=== PATIENT | female | born 1945 | race Caucasian/White ===

== ENCOUNTER 2024-03-05 15:04 | Observation (INO) | payer MEDICARE, BC ==
[~2024-03-05] VITALS: Ht 162.6 cm; Wt 81.1 kg
[2024-03-05 15:47] LABS: BASO % 0.3 % (0.0-2.0); EOS # 0.1 K/mm3 (0.0-0.7); GRAN # 5.4 K/mm3 (1.4-6.5); GRAN % 63.2 % (42.2-75.2); HEMOGLOBIN 10.3 g/dl (12.5-16.0); LYMPH # 1.9 K/mm3 (1.2-3.4); LYMPH % 22.1 % (20.0-51.0); MEAN CELL VOLUME 100 fl (80.0-100.0); MEAN CORPUSCULAR HEMOGLOBIN 33 pg (27-31); MEAN CORPUSCULAR HGB CONC 33 g/dl (33.0-37.0); MEAN PLATELET VOLUME 10.3 fl (7.4-10.4); MONO # 1.1 K/mm3 (0.1-0.6); MONO % 12.9 % (1.7-9.3); PLATELET COUNT 177 K/mm3 (130-400); RED BLOOD COUNT 3.15 M/mm3 (4.10-5.30); REDCELL DISTRIBUTION WIDTH-CV 13.2 % (11.5-14.5)
[2024-03-05 15:48] LABS: HEMATOCRIT 31.5 % (37.0-47.0)
[2024-03-05 15:58] LABS: INR 2.3 (0.8-3.0); PROTHROMBIN TIME 24.7 SECONDS (9.7-12.8)
[2024-03-05 16:01] LABS: ALANINE AMINOTRANSFERASE 11 U/L (0-55); ALBUMIN 2.6 g/dL (3.4-4.8); ALKALINE PHOSPHATASE 52 U/L (40-150); ANION GAP 13 mmol/L (7-16); AST,SGOT 17 U/L (5-34); BILIRUBIN,TOTAL 0.7 mg/dL (0.2-1.2); BLOOD UREA NITROGEN 12 mg/dL (10-20); CALCIUM 9.1 mg/dL (8.4-10.2); CHLORIDE 104 mEq/L (98-107); CREATININE, serum 1.18 mg/dL (0.57-1.11); GLUCOSE 92 mg/dL (70-99); MAGNESIUM 1.4 mg/dL (1.6-2.6); POTASSIUM 3.3 mEq/L (3.5-4.5); SODIUM 140 mEq/L (136-145); TOTAL PROTEIN 5.4 g/dl (6.2-8.1)
[2024-03-05 16:16] LABS: TROPONIN-I < 0.010 ng/mL (0.00-0.033)
[2024-03-05] MEDS ORDERED: Polyethylene Glycol 3350 17 GM PDS PO PRN (19:00)
[2024-03-05] MEDS ORDERED: Docusate Sodium 100 MG CAP PO PRN (19:00)
[2024-03-05] MEDS ORDERED: Ondansetron 4 MG/2 ML VIAL IV PRN (19:00)
[2024-03-05] MEDS ORDERED: Acetaminophen 325 MG TAB PO PRN (19:00)
[2024-03-05] MEDS ORDERED: DOXYCYCLINE HY100 MG PO (19:16)
[2024-03-05] MEDS ORDERED: LIPITOR20 MG PO (19:17)
[2024-03-05] MEDS ORDERED: LASIX 20MG TABL20 MG PO (19:17)
[2024-03-05] MEDS ORDERED: PAXIL40 MG PO (19:18)
[2024-03-05] MEDS ORDERED: PACERONE200 MG PO (19:18)
[2024-03-05] MEDS ORDERED: XARELTO15 MG PO (19:18)
[2024-03-05] MEDS ORDERED: ASPIRIN 81M81 MG/TA2 PO (19:19)
[2024-03-05] MEDS ORDERED: FOLIC ACID 11 MG/TA1 PO (19:19)
[2024-03-05] MEDS ORDERED: MULTIPLE VITAMI1 CAP PO (19:20)
[2024-03-05] MEDS ORDERED: NATURE'S BLEND100 M2 PO (19:20)
[2024-03-05 20:08] LABS: COLLECTION METHOD CATHETER
[2024-03-05] MEDS ORDERED: Potassium Bicarbonate/Citrate 20 MEQ Effervescent TAB PO ONE (20:15)
[2024-03-05] MEDS ORDERED: Magnesium Sulfate 8% 50 ML IV ONE (20:15)
--- NOTE | 2024-03-05 20:15 | NUR ---
REPORT RECIEVED FROM RENETTA HALEY IN ER.
[2024-03-05 20:17] LABS: PH 5.5 (5.0-8.5); URINE APPEARANCE CLEAR (CLEAR/HAZY); URINE BLOOD NEGATIVE (NEGATIVE); URINE COLOR YELLOW (YELLOW); URINE GLUCOSE NEGATIVE (NEGATIVE); URINE KETONE TRACE (NEGATIVE); URINE NITRATE NEGATIVE (NEGATIVE); URINE PROTEIN(semi-quant) TRACE (NEGATIVE); URINE UROBILINOGEN 0.2 E.U/dL (0.2-1.0)
[2024-03-05 20:35] VITALS: BP 106/63; PULSE 79; TEMP 98.2
--- NOTE | 2024-03-05 20:35 | NUR ---
FEMALE PATIENT ARRIVED TO ROOM #215 VIA STRETCHER FROM ER. PATIENT ASSISTED TO BED VIA SLIDE BOARD. PATIENT TOELRATED WELL. AT BEDSIDE. EXTRA SHEET REMOVED AND SKIN ASSESSMENT COMPLETED. PATIENT PULLED UP IN BED AND HELPED TO REPOSITION FOR COMFORT. INT TO LEFT FOREARM INTACT WITH NO COMPLICATIONS NOTED. TELEMETRY INTACT. INITAL INTAKE AND INITAL ASSESSMENT COMPLETED. PATENT TOLERATED WELL. PATIENT CHEANGED INTO YELLOW GOWN AND FALL RISK ARMBAND PLACED ON WRIST. REQUESTED ICE FOR PATIENT AND PITCHER OF ICE WITH WATER GIVEN. AND PATIENT VERBALIZED UNDERSTANDING OF CALL LIGHT AND BED CONTROLS. PATIENT DENIES ANY OTHER NEEDS AT THIS TIME. BED IN LOW POSITION WITH WHEELS LOCKED WITH RAILS UP X3 AND CALL LIGHT WITHIN REACH. BED ALARM ON.
[2024-03-05 21:00] VITALS: BP_SYST 106
[2024-03-05] MEDS ORDERED: Doxycycline Monohydrate 100 MG CAP PO SCH (21:00)
[2024-03-05] MEDS ORDERED: Atorvastatin 20 MG TAB PO SCH (21:00)
[2024-03-05] MEDS ORDERED: Famotidine 20 MG TAB PO SCH (21:00)
[2024-03-06] VITALS (14 sets, daily range): BP systolic 99–125; BP diastolic 51–71; PULSE 81–96; TEMP 97.9–980
[2024-03-06 06:34] LABS: BASO % 0.6 % (0.0-2.0); EOS # 0.1 K/mm3 (0.0-0.7); EOS % 1.5 % (0.0-4.0); GRAN # 3.4 K/mm3 (1.4-6.5); GRAN % 65.8 % (42.2-75.2); LYMPH # 1.1 K/mm3 (1.2-3.4); LYMPH % 20.3 % (20.0-51.0); MEAN CELL VOLUME 101 fl (80.0-100.0); MEAN CORPUSCULAR HGB CONC 31 g/dl (33.0-37.0); MEAN PLATELET VOLUME 11.8 fl (7.4-10.4); MONO # 0.6 K/mm3 (0.1-0.6); MONO % 11.2 % (1.7-9.3); RED BLOOD COUNT 2.83 M/mm3 (4.10-5.30); REDCELL DISTRIBUTION WIDTH-CV 12.9 % (11.5-14.5)
[2024-03-06 06:38] LABS: HEMATOCRIT 28.6 % (37.0-47.0); HEMOGLOBIN 8.9 g/dl (12.5-16.0); MEAN CORPUSCULAR HEMOGLOBIN 31 pg (27-31); PLATELET COUNT 52 K/mm3 (130-400)
[2024-03-06 06:54] LABS: CALCIUM 8.8 mg/dL (8.4-10.2); CREATININE, serum 1.03 mg/dL (0.57-1.11); POTASSIUM 3.6 mEq/L (3.5-4.5)
[2024-03-06] MEDS ORDERED: Rivaroxaban 15 MG TAB PO SCH (08:00)
[2024-03-06] MEDS ORDERED: Amiodarone 200 MG TAB PO SCH (09:00)
[2024-03-06] MEDS ORDERED: PARoxetine HCL 10 MG TABLET PO SCH (09:00)
[2024-03-06] MEDS ORDERED: Thiamine 100 MG TAB PO SCH (09:00)
[2024-03-06] MEDS ORDERED: Multivitamin TAB PO SCH (09:00)
[2024-03-06] MEDS ORDERED: Folic Acid 1 MG TAB PO SCH (09:00)
[2024-03-06] MEDS ORDERED: LR 1,000 ML IV SCH (09:00)
--- NOTE | 2024-03-06 10:15 | NUR ---
food service utility worker met with pt's due to pt working with PT/OT in room. Lucio [phone] reports he has short-term memory loss and his daughter, Leona is DPOA-HC. did not have a copy. He reports pt has been at [facility] for 2-[address] Montano and obtains medications froM [facility] with no issues. He states pt is usually independent with ADLS and uses a rolator for DME. intends for pt to return to [facility]. SOLOMON Hernandez spoke with [facility] to obtain DPOA-HC. This SOLOMON emailed updates to Sonido at [facility]. Discharge Plan: return to [facility]
[2024-03-06] MEDS ORDERED: COLACE 100100 MG/CAP PO (10:29)
[2024-03-06] MEDS ORDERED: CRESTOR20 MG PO (10:33)
[2024-03-06] MEDS ORDERED: MIRALAX PA17 GM/Dose PO (10:34)
[2024-03-06] MEDS ORDERED: MELATONIN5 M1 SL (10:36)
[2024-03-06] MEDS ORDERED: PRILOTC PO (10:36)
[2024-03-06] MEDS ORDERED: TYLENOL 500MG500 MG PO (10:40)
[2024-03-06] MEDS ORDERED: ULTRAM 50MG TAB50 MG PO (10:40)
[2024-03-06] MEDS ORDERED: NITROSTAT0.4 MG/TAB SL (10:41)
[2024-03-06] MEDS ORDERED: XANAX 0.5MG0.5 MG PO (10:41)
--- NOTE | 2024-03-06 13:38 | NUR ---
Hand Woven Carpet And Rug Mender contacted patient's DPOA-HC, Leona (ph#[phone]) to check in. Leona requested clinical update and RN will call later this afternoon. SOLOMON received DPOA-HC from [place] and placed it on patient's chart.
--- NOTE | 2024-03-06 14:41 | NUR ---
Patient appears alert and follows verbal commands. Patient was not answering orientation questions for this nurse, but per speech therapy who was in room at same time, patient answered questions appropriately for her. Patient tolerating food and fluids PO well, but requires supervision. Requires cues and encouragement during eating and taking medications. Observed patient holding pills for extended time until encouraged to finish taking medicine. Tolerated pills whole one at a time with water. at bedside. LR infusing per orders. Patient does speak, but appears to do so selectively, patient will look and make eye contact but only answers when prompted multiple times. Patient's voices no concerns other than speaking to hospitalist regarging discharge planning. Hospitalist notified. Call light within reach, all needs met at this time.
--- NOTE | 2024-03-06 17:26 | NUR ---
Patient tolerating activity well x1 assist with walker/gait belt. Small incontinence episode noted, patient assisted to bathroom. Linens changed. Barrier cream applied to mild redness on bottom. Patient resting in bed with call light in reach, all needs met at this time.
--- NOTE | 2024-03-06 20:15 | NUR ---
PATIENT RESTING IN BED WITH TV OFF WITH NO FAMILY PRESENT WITH NO ACUTE DISTRESS NOTED. PATIENT ON ROOM AIR. NS INFUSING INTO LEFT FOREARM WITH NO COMPLICATIONS NTOED. PATIENT ASSISTED TO TURN TV ON INSTEAD OF CONTINUOUSLY HITTING THE CALL BUTTON PER PATIENT REQUEST. ASSESSMENT AND MEDICATION ADMINISTRATION COMPLETED AT THIS TIME. PATIENT TOELRATED WELL. ALL NEEDS MET. BED IN LOW POSITION WITH WHEELS LOCKED WITH RAILS UP X3 AND CALL LIGHT WITHIN REACH. BED ALARM ON.
[2024-03-07 03:40] VITALS: BP 106/63; PULSE 79; TEMP 98
[2024-03-07 04:05] VITALS: BP_SYST 106
[2024-03-07 06:30] LABS: BASO % 0.5 % (0.0-2.0); EOS # 0.1 K/mm3 (0.0-0.7); EOS % 1.5 % (0.0-4.0); GRAN # 3.9 K/mm3 (1.4-6.5); GRAN % 63.8 % (42.2-75.2); LYMPH # 1.3 K/mm3 (1.2-3.4); LYMPH % 21.9 % (20.0-51.0); MEAN CORPUSCULAR HGB CONC 33 g/dl (33.0-37.0); MEAN PLATELET VOLUME 10.3 fl (7.4-10.4); MONO # 0.7 K/mm3 (0.1-0.6); MONO % 11.6 % (1.7-9.3); RED BLOOD COUNT 2.66 M/mm3 (4.10-5.30); REDCELL DISTRIBUTION WIDTH-CV 13.1 % (11.5-14.5)
[2024-03-07 06:33] LABS: HEMATOCRIT 25.6 % (37.0-47.0); HEMOGLOBIN 8.4 g/dl (12.5-16.0); MEAN CELL VOLUME 96 fl (80.0-100.0); MEAN CORPUSCULAR HEMOGLOBIN 32 pg (27-31); PLATELET COUNT 159 K/mm3 (130-400)
[2024-03-07 07:41] VITALS: BP 119/67; PULSE 89; TEMP 98.5
[2024-03-07 07:49] LABS: CREATININE, serum 1.03 mg/dL (0.57-1.11); POTASSIUM 3.5 mEq/L (3.5-4.5)
[2024-03-07] MEDS ORDERED: CLEOCIN HCL300 MG PO (08:28)
[2024-03-07 09:00] VITALS: BP_SYST 119
--- NOTE | 2024-03-07 10:03 | NUR ---
REPORT GIVEN TO NURSE BARRERA AT [facility]. ALL QUESTIONS ANSWERED.
--- NOTE | 2024-03-07 10:33 | NUR ---
PATIENT AWAKE AND ALERT, SITTIGN UP IN BED. CALL LIGHT WTIHIN REACH. FALL PREACUTIONS IN PLACE. IV REMOVED. PATIENT DRESED AND READY FOR [facility]GE [facility].
--- NOTE | 2024-03-07 11:48 | NUR ---
patient taken to vcv by vcv staff.patient left awake and alert.
--- NOTE | 2024-03-07 12:57 | NUR ---
Director Of Teenage Activities contacted Sonido at [facility] to notify him of discharge. Treasure Estrella faxed discharge orders. Transport time was set for 1130 and SOLOMON called patient's daughter, Leona to provide update. Discharge Plan: [facility]
== END 2024-03-07 11:50 ==
LOC: COL.ER 15:04 → MEDICAL 19:30
PROVIDERS: Emergency Medicine; ADMIT Internal Medicine
DX: J98.4 Other disorders of lung (principal); G31.84 Mild cognitive impairment of uncertain or unknown etiology; E87.6 Hypokalemia; E83.42 Hypomagnesemia; L03.116 Cellulitis of left lower limb; S81.801A Unspecified open wound, right lower leg, initial encounter; I48.91 Unspecified atrial fibrillation; F32.A Depression, unspecified; Z91.81 History of falling; Z79.01 Long term (current) use of anticoagulants; K21.9 Gastro-esophageal reflux disease without esophagitis; F10.10 Alcohol abuse, uncomplicated; N17.9 Acute kidney failure, unspecified; X58.XXXA Exposure to other specified factors, initial encounter; Y90.9 Presence of alcohol in blood, level not specified; Z79.899 Other long term (current) drug therapy; Z86.73 Personal history of transient ischemic attack (TIA), and cerebral infarction without residual deficits; Z79.82 Long term (current) use of aspirin
CPT/HCPCS: G0378; J0737; J1956; J2543; J3475; J7120